=== PATIENT | male | born 1995 ===

== ENCOUNTER 2016-09-03 06:59 | Emergency (ER) | payer OTHER ==
[2016-09-03 07:16] VITALS: TEMP 98.5; O2SAT 100
--- NOTE | 2016-09-03 08:19 | C.PDOC ---
History Of Present Illness 21-year-old male, presents to the emergency department with complaints of hematochezia. Patient states he had an episode of bright red blood per rectum that was mixed w/ stool, but has had a normal bowel movement since. No associated rectal, abdominal pain or nausea/vomiting. Patient denies recent diarrhea or illness. Patient is also complaining of persistent itching to the abdominal wall s/p treatment for abdominal wall rash w/ unknown antifungal cream that she used one month ago. Patient states rash has seemed to improved w / still has persistent itch. No discharge or swelling. 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 PS BRB MIXED W STOOL BUT HAS HAD NORMAL BM SINCE. NO ASSOC rectal, ABD PAIN, NV. DENIES RECENT DIARRHEA, ILLNESS. ALSO CO PERSIST ITCHING ABD WALL. S/P TX FOR ABD WALL RASH W UNK ANTIFUNGAL CREAM, USED X 1 MO. PS RASH SEEMED TO IMPROVE BUT NOW STILL W PERSIST ITCH. NO DC, SWELL. EXAM NO PALLOR, NAD RECTAL NO HEMORRHOIDS; +BROWN STOOL SKIN HEALING RASH RUQ AREA OF ABD WALL W CHRONIC EXCORIATION, ?RESIDUAL TINEA CORPORIS. NO DC Time Seen by Provider: 09/03/16 07:31 Chief Complaint (Nursing): GI Problem History Per: Patient History/Exam Limitations: no limitations Current Symptoms Are (Timing): Still Present Past Medical History Reviewed: Historical Data, Nursing Documentation, Vital Signs Vital Signs: Last Vital Signs Temp 98.5 F 09/03/16 07:15 Pulse 75 09/03/16 07:15 Resp 17 09/03/16 07:15 BP 120/74 09/03/16 07:15 Pulse Ox 100 09/03/16 08:21 Family History: States: Unknown Family Hx - Social History Hx Alcohol Use: No Hx Substance Use: No - Immunization History Hx Tetanus Toxoid Vaccination: No Hx Influenza Vaccination: Yes Hx Pneumococcal Vaccination: No Review Of Systems Except As Marked, All Systems Reviewed And Found Negative. Constitutional: Negative for: Fever Cardiovascular: Negative for: Chest Pain Respiratory: Negative for: Shortness of Breath Gastrointestinal: Positive for: Hematochezia. Negative for: Nausea, Vomiting, Abdominal Pain Musculoskeletal: Negative for: Hand Pain Skin: Positive for: Rash Neurological: Negative for: Weakness, Numbness, Headache, Dizziness Physical Exam - Physical Exam Appears: Non-toxic, No Acute Distress Skin: Warm, Dry, No Pale, Rash (HEALING RASH RUQ AREA OF ABD WALL W CHRONIC EXCORIATION, ?RESIDUAL TINEA CORPORIS. NO DC) Head: Atraumatic, Normacephalic Eye(s): bilateral: Normal Inspection, PERRL Nose: Normal Oral Mucosa: Moist Lips: Normal Appearing Neck: Normal ROM Chest: Tenderness Respiratory: Normal Breath Sounds, No Accessory Muscle Use Rectal: Other (brown stool. No hemorrhoids.) Extremity: Normal ROM Neurological/Psych: Oriented x3, Normal Speech ED Course And Treatment O2 Sat by Pulse Oximetry: 100 Disposition Counseled Patient/Family Regarding: Diagnosis, Need For Followup - Disposition Referrals: YOUR,PMD [Other] Ella Granados MD [Staff Provider] - Disposition: HOME/ ROUTINE Disposition Time: 08:20 Condition: GOOD Additional Instructions: CONTINUE PRIOR ANTIFUNGAL MEDICATION X 2-4 WEEKS. TAKE BENADRYL DIRECTED FOR ITCH. RETURN IF WORSENING BLEEDING Instructions: Rectal Bleeding (ED), Dermatitis (ED) - Clinical Impression Clinical Impression: Rectal bleed, Dermatitis - Scribe Statement The provider has reviewed the documentation as recorded by the Ramona Nelson All medical record entries made by the Louisaibange were at my direction and personally dictated by me. I have reviewed the chart and agree that the record accurately reflects my personal performance of the history, physical exam, medical decision making, and the department course for this patient. I have also personally directed, reviewed, and agree with the discharge instructions and disposition.
[2016-09-03 08:49] VITALS: BP 121/73; PULSE 69; RESP 18
== END 2016-09-03 08:49 | disposition home or self-care (01) ==
LOC: C.ER 06:59
DX: K62.5 Hemorrhage of anus and rectum (principal); L30.9 Dermatitis, unspecified
CPT/HCPCS: 99284; G0328

== ENCOUNTER 2016-12-12 16:55 | Emergency (ER) | payer OTHER ==
[2016-12-12 17:03] VITALS: BP 137/82; PULSE 91; RESP 20; TEMP 99; O2SAT 99; BMI 37.4
--- NOTE | 2016-12-12 17:24 | C.PDOC ---
History Of Present Illness 21 y/o male presents to ED with complaints of rash for 1 year. Patient states rash is sometimes itchy and has tried fungal cream in the past with some relief but rash then persists. Patient denies fever, chills, recent travel or any other associated complaints at this time. Time Seen by Provider: 12/12/16 17:05 Chief Complaint (Nursing): Abnormal Skin Integrity History Per: Patient History/Exam Limitations: no limitations Onset/Duration Of Symptoms: Days Current Symptoms Are (Timing): Still Present Quality Of Symptoms: Itching Past Medical History Reviewed: Historical Data, Nursing Documentation, Vital Signs Vital Signs: Last Vital Signs Temp 99.0 F 12/12/16 16:59 Pulse 91 H 12/12/16 16:59 Resp 20 12/12/16 16:59 BP 137/82 12/12/16 16:59 Pulse Ox 99 12/12/16 18:15 - Medical History PMH: No Chronic Diseases Surgical History: No Surg Hx Family History: States: Unknown Family Hx - Social History Hx Alcohol Use: No Hx Substance Use: No - Immunization History Hx Tetanus Toxoid Vaccination: No Hx Influenza Vaccination: Yes Hx Pneumococcal Vaccination: No Review Of Systems Constitutional: Negative for: Fever, Chills Respiratory: Negative for: Shortness of Breath Gastrointestinal: Negative for: Nausea, Vomiting, Diarrhea Skin: Positive for: Rash Physical Exam - Physical Exam Appears: Non-toxic, No Acute Distress Skin: Warm, Rash (Hyperpigmented patchy ovoid shaped rash to right upper abdomen , non tender) Head: Atraumatic, Normacephalic Eye(s): bilateral: Normal Inspection Throat: Normal, No Erythema Neck: Normal ROM Chest: Symmetrical Cardiovascular: Rhythm Regular Respiratory: Normal Breath Sounds Gastrointestinal/Abdominal: Soft, No Tenderness, No Guarding, No Rebound Extremity: Bilateral: Atraumatic, Normal Color And Temperature, Normal ROM Neurological/Psych: Oriented x3, Normal Speech Gait: Steady ED Course And Treatment O2 Sat by Pulse Oximetry: 99 (RA) Pulse Ox Interpretation: Normal Medical Decision Making Medical Decision Making: Patient with rash to right upper abdomen, appears fungal. Prior records reviewed patient was seen last year for similar rash. Dr Salgado also examined patient and recommend antifungal cream and to follow up with product promoter sales person Disposition Counseled Patient/Family Regarding: Diagnosis, Need For Followup, Rx Given - Disposition Referrals: [facility] [Outside] [facility] [Outside] Disposition: HOME/ ROUTINE Disposition Time: 17:21 Condition: GOOD Additional Instructions: Please follow up with product promoter sales person outpatient for further evaluation Apply cream to the area daily for 2-3 weeks Prescriptions: Ketoconazole 2% Cr [Nizoral] 1 cre TP DAILY #1 tube Instructions: Tinea Corporis (ED) Forms: [facility] ([place] Citizen) - POA Present On Arrival: None - Clinical Impression Clinical Impression: Tinea corporis - PA / NURSE STAFF / Resident Statement MD/DO has examined the patient and agrees with the treatment plan. - Scribe Statement The provider has reviewed the documentation as recorded by the Louisaibange Echavarria All medical record entries made by the Louisaibange were at my direction and personally dictated by me. I have reviewed the chart and agree that the record accurately reflects my personal performance of the history, physical exam, medical decision making, and the department course for this patient. I have also personally directed, reviewed, and agree with the discharge instructions and disposition.
== END 2016-12-12 17:28 | disposition home or self-care (01) ==
LOC: C.ER 16:55
DX: B35.4 Tinea corporis (principal)

== ENCOUNTER 2018-05-02 10:45 | Emergency (ER) | payer OTHER ==
[2018-05-02 10:53] VITALS: BMI 39.1
[2018-05-02 12:34] VITALS: RESP 16
[2018-05-02] MEDS ORDERED: Lidocaine 5% Patch TD STA (12:36)
--- NOTE | 2018-05-02 13:11 | RAD ---
Date of service: 05/02/2018 PROCEDURE: Radiographs of the Lumbar Spine. HISTORY: pain after bending x 5 days COMPARISON: No prior. FINDINGS: BONES: Alignment appears satisfactory. No listhesis. No acute displaced fracture identified. DISC SPACES: Unremarkable. OTHER FINDINGS: None. IMPRESSION: No acute displaced fracture or subluxation.
[2018-05-02] MEDS ORDERED: Lidocaine 5% Patch TD ONE (13:27)
--- NOTE | 2018-05-02 15:08 | C.PDOC ---
History Of Present Illness 23 y/o male presents to the ED complaining of lower back pain for 1 week. Patient states about 1 week ago he bent over to pick something up, at which time he sneezed and felt a sharp pain in his low back. Pain is described as localized, non-radiating. He denies any associated urinary symptoms, retention, incontinence, fever, extremity weakness or numbness. Time Seen by Provider: 05/02/18 12:30 Chief Complaint (Nursing): Back Pain History Per: Patient History/Exam Limitations: no limitations Onset/Duration Of Symptoms: Days Current Symptoms Are (Timing): Still Present Past Medical History Reviewed: Historical Data, Nursing Documentation, Vital Signs Vital Signs: Last Vital Signs Temp 98.1 F 05/02/18 12:34 Pulse 69 05/02/18 12:34 Resp 16 05/02/18 12:34 BP 111/75 05/02/18 12:34 Pulse Ox 97 05/02/18 12:34 Surgical History: No Surg Hx Family History: States: Unknown Family Hx - Social History Hx Tobacco Use: No Hx Alcohol Use: No Hx Substance Use: No - Immunization History Hx Tetanus Toxoid Vaccination: No Hx Influenza Vaccination: Yes Hx Pneumococcal Vaccination: No Review Of Systems Except As Marked, All Systems Reviewed And Found Negative. Constitutional: Negative for: Fever, Chills Gastrointestinal: Negative for: Abdominal Pain Genitourinary: Negative for: Dysuria, Frequency, Hematuria Musculoskeletal: Positive for: Back Pain Skin: Negative for: Rash Neurological: Negative for: Weakness, Numbness, Incoordination Physical Exam - Physical Exam Appears: Non-toxic, No Acute Distress Skin: Normal Color, Warm, Dry Head: Atraumatic, Normacephalic Eye(s): bilateral: Normal Inspection, PERRL, EOMI Oral Mucosa: Moist Neck: Normal ROM, No Midline Cervical Tenderness, Supple Chest: Symmetrical Respiratory: No Accessory Muscle Use, Other (Speaking in full sentences) Gastrointestinal/Abdominal: Soft, No Tenderness Back: No CVA Tenderness, Vertebral Tenderness (Tenderness to low lumbar spine, near L5 and S1) Extremity: Bilateral: Atraumatic, Normal Color And Temperature, Normal ROM Pulses: Left Dorsalis Pedis: Normal, Right Dorsalis Pedis: Normal Neurological/Psych: Oriented x3, Normal Speech, Normal Motor, Normal Sensation ED Course And Treatment O2 Sat by Pulse Oximetry: 97 (RA) Pulse Ox Interpretation: Normal - Other Rad LS spine xray X-Ray: Viewed By Me, Read By Radiologist Interpretation: Accession No. : [id number]. Patient Name / ID : ANGELINA ESCOBAR / [id number]. Exam Date : 05/02/2018 12:45:46 ( Approved ). Study Comment : Sex / Age : M / 23Y. Creator : Hui Clarke MD. Dictator : Hui Clarke MD. Fire Suppression Captain : Commercial Drone Pilot : Hui Clarke MD. Approver2 : Report Date : 05/02/2018 13:07:47. My Comment : . Date of service: 05/02/2018. PROCEDURE: Radiographs of the Lumbar Spine. HISTORY: pain after bending x 5 days. COMPARISON: No prior. FINDINGS: BONES: Alignment appears satisfactory. No listhesis. No acute displaced fracture identified. DISC SPACES: Unremarkable. OTHER FINDINGS: None. IMPRESSION: No acute displaced fracture or subluxation. Progress Note: Ls spine x-ray obtained, and is negative. Treated patient with PO Valium, IM Toradol, and Lidoderm patch in the ER. On reevaluation patient reports improvement, and is stable for discharge home. Counseled regarding likely diagnosis and follow up instructions. Disposition - Disposition Referrals: [facility] [Outside] Disposition: HOME/ ROUTINE Disposition Time: 15:04 Condition: STABLE Additional Instructions: Follow up with PMD/Clinic within 1-2 days. Return to ED if feel worse. 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 - Scribe Statement The provider has reviewed the documentation as recorded by the Louisaibange Moore All medical record entries made by the Ramona were at my direction and personally dictated by me. I have reviewed the chart and agree that the record accurately reflects my personal performance of the history, physical exam, medical decision making, and the department course for this patient. I have also personally directed, reviewed, and agree with the discharge instructions and disposition.
[2018-05-02 15:35] VITALS: BP 111/73; PULSE 68; TEMP 98.5
[2018-05-02 16:02] VITALS: O2SAT 97
== END 2018-05-02 15:39 | disposition home or self-care (01) ==
LOC: C.ER 10:45
DX: M54.5 Low back pain (principal)
CPT/HCPCS: 72100; 96372; 99284; J1885